=== PATIENT | female | born 1985 | race Caucasian/White ===

== ENCOUNTER → 2024-06-01 08:42 | Outpatient (REF) | payer OTHER, SELFPAY | LOC: RAD 08:42 | PROVIDERS: ATTENDING PHYSICIAN Physician Assistant Medical | DX: F90.9 Attention-deficit hyperactivity disorder, unspecified type (principal) | CPT/HCPCS: 73030 ==

== ENCOUNTER → 2024-07-02 07:53 | Outpatient (REF) | payer OTHER, SELFPAY | LOC: RAD 07:53 | PROVIDERS: ATTENDING PHYSICIAN Physician Assistant Medical | DX: M25.562 Pain in left knee (principal) | CPT/HCPCS: 73564 ==

== ENCOUNTER 2024-11-20 23:35 | Emergency (ER) | payer OTHER, SELFPAY ==
[2024-11-20 23:40] VITALS: BP 118/80
--- NOTE | 2024-11-21 00:54 | ED.GENMED ---
History of Present Illness
General
Chief Complaint: Abdominal Symptoms
Source: patient
Exam Limitations: none
Time Seen by Provider: 11/21/24 00:45
Nursing documentation reviewed up to this point in time: agreed with
History of Present Illness
History of Present Illness:
pt is a 39 y/o F with no isg pmh
here with nausea/vmoiting/diarrhea
started with symptoms 4 days ago with vomiting primarily;had a fever for that day, vomited about 10 times
then she felt ok and was tolerating po after 24 hurs
went back to work 2 days ago and then symptoms started with diarrhea that evening
has mostly had watery stools since, many a day
trying to stay hydrated but now feeling very nauseated with liquids adn dry heaving
she is having abd cramps, startted on R then moved to L
no bloody stool, recent travel, recent abx
nothing taken for symptoms
dec urination
no previous abd surgeries
Past History
Past History
ED Past Medical History: Psychiatric
ED Past Surgical History: None
Social History
Tobacco: Non-smoker
Personal:
Living: with family
Family History
Family History: Other (Kidney stones)
Review of Systems
Review of Systems
Allergies reviewed?: Yes
All Other Systems: Not applicable
Phy Exam
Physical Exam
Physical Exam:
GENERAL: Alert , in no apparent distress
EYE: pupils equal and reactive
NECK: Supple
ENT: o/p clr, mild dry mouth
CARDIAC: Regular rate and rhythm .no edema
LUNGS: Clear breath sounds bilaterally, no acute respiratory distress, no wheezes/rales/rhonchi
ABDOMEN: Soft, without focal tenderness, no r/g, no cvat, normal bowel sounds
no distension
NEUROLOGICAL: Alert and oriented, no focal neuro deficits
SKIN: Warm and dry, skin intact.
MUSCULOSKELETAL: No edema, well perfused. neg jeanette's sign
PSYCH: Normal and appropriate interaction.
Course
Orders/Labs/Results
Orders:
Orders
11/21/24 00:47
CBC/With Diff [Complete Blood Count/With Diff] Urgent
CMP [Comprehensive Metabolic Panel] Urgent
HCG, Serum Qualitative Screen Urgent
Comment: ADD ON
Lipase Urgent
11/21/24 01:04
0.9% Sodium Chloride 1000 ml [Nss] 1,000 ml IV BOLUS
Famotidine [Pepcid] 20 mg IV NOW STA
Ketorolac [Toradol] 15 mg IV NOW STA
Ondansetron Injectable [Zofran] 4 mg IV NOW STA
11/21/24 01:05
Add On- LAB Urgent
Tests Added?: hcg qual serum
11/21/24 02:33
Dicyclomine [Bentyl] 20 mg PO NOW STA
11/21/24 02:52
Urinalysis Reflex To Culture Urgent
Date Specimen was Collected: 11/21/24
Time Specimen was Collected: 02:51
Urine Microscopic Reflex Cult Urgent
Norovirus by PCR Urgent
MICHELLE Source: Feces/Stool
Specimen Description:
Date Specimen was Collected: 11/21/24
Time Specimen was Collected: 02:51
STOOL [C difficile Antigen & Toxins] Urgent
MICHELLE Source: Feces/Stool
Specimen Description:
Date Specimen was Collected: 11/21/24
Time Specimen was Collected: 02:51
Stool Culture Urgent
MICHELLE Source: Feces/Stool
Specimen Description:
Date Specimen was Collected: 11/21/24
Time Specimen was Collected: 02:51
Urine Culture Urgent
MICHELLE Source: U
Specimen Description:
Date Specimen was Collected: 11/21/24
Time Specimen was Collected: 02:51
Abnormal Lab Results
11/21/24 11/21/24
00:47 02:52
MPV 10.6 H fL
(7.4-10.4)
BUN 19 H mg/dl
(7-17)
Glucose 101 H mg/dl
(70-99)
AST 41 H U/L
(14-36)
ALT 57 H U/L
(0-35)
Urine Ketones 1+ A
(Negative)
Ur Occult Blood Reflex 3+ A
(Negative)
Urine Bilirubin 1+ A
(Negative)
Leukocyte Esterase Rfl 3+ A
(Negative)
Urine RBC 11-15 A /HPF
(0-2)
Urine WBC (Reflex) 26-30 A /HPF
(0-5)
Urine Bacteria (Reflex) Few A
(Negative)
Urine Albumin (Reflex) 2+ A
(Neg - Trace)
11/21/24 00:47
11/21/24 00:47
Vital Signs
Initial and Last Documented VS:
Initial Vital Signs
Temp Pulse Resp BP Pulse Ox
37.0 C 82 22 118/80 100
11/20/24 23:40 11/20/24 23:40 11/20/24 23:40 11/20/24 23:40 11/20/24 23:40
Last Documented Vital Signs
Temp Pulse Resp BP Pulse Ox
36.4 C 67 18 108/59 100
11/21/24 02:43 11/21/24 02:43 11/21/24 02:43 11/21/24 02:43 11/21/24 02:43
MDM/Problems Addressed
Differential Diagnosis Includes:
gastroenteritis, norovirus
MDM/Problems Addressed:
39 y/o F with no sig pmh
here with n/v/d
mostly vmoiting intiially and then switched to mostly diarrhea
feels dehydrated
having crampy pain in her abdomen more on the L side
no distension, fever urinary symptoms
no previous abd surgery
no c diff rf
no known exposures
onexam nontoxic
not tachy
afebrile
mild dry
nontender abdomen
no back tendneress
wbc normal
mild lft elevation
suspect viral gastroenteritis
aware of pt's urine which is contaminated
she has zero uti sxs and no h/o kidney stone
do not suspect pain is related to kindye stone or infectionconsidered imaging but will hold off
dacia hold abx
norovirus and stool studies are pending
pt is feelingwell enoguht to go home
trial po fluids well
return precuations
*Critical Care Note
Total Time (30-74mins, 75-104mins- exclusive of procedures): Not Applicable
ED Attending Note
-
Portions of this chart may have been created with voice recognition software.� Occasional wrong word or��sound alike� substitutions may have occurred due to the inherent limitations of voice recognition software.
Discharge Plan
Departure
Patient Disposition: Home (Routine Discharge)
Date of Disposition: 11/21/24
Time of Disposition: 03:55
Patient with high blood pressure during this ER visit?: No
Condition: Fair
Covid-19: Not Applicable
Discharge Problem:
Gastroenteritis
Instructions: Viral gastroenteritis in adults
Prescriptions:
New
ondansetron 4 mg tablet,disintegrating
4 mg PO Q8H PRN (Reason: nausea and vomiting) 2 Days Qty: 5 0RF
dicyclomine 20 mg tablet
20 mg PO QID PRN (Reason: abdominal pain) Qty: 15 0RF
No Action
Vitamins
1 tab PO DAILY
Zantac
ibuprofen 600 MG tablet
600 mg PO Q4HPRN PRN (Reason: moderate pain/cramps) 0RF
Referrals:
UNKNOWN - PT DOES,NOT KNOW [Family Provider] -
Activity Restrictions/Additional Instructions:
YOU PROBABLY HAVE A VIRAL INFECTION CAUSING YOUR SYMPTOMS
YOU DID HAVE A URINE THAT LOOKED INFECTED BUT IT APPEARS TO BE CONTAMINATED SO WE ARE NOT STARTING ANTIBIOTICS AT THIS TIME
TRY ZOFRAN EVERY 8 HOURS NEEDED FOR NAUSEA/VOMITING
BLAND DIET
BRAT DIET FOR DIARRHEA (BANANAS , RCIE, APPLESAUCE, TOAST)
WE TESTED YOUR STOOL FOR BACTERIA AND VIRUS- YOU CAN FOLLOW UP TOMORROW OR FRIDAY FOR RESULTS
STAY HOME AND BLEACH THE TOILET AFTER USE, OR TRY NOT TO SHARE BATHROOM
RETURN FOR WORSENING SYMPTOMS, SEVERE DIARRHEA, DEHYRDATION, FEVER
Interventions
Interventions:
*Risk Screen - Suicide Last Done: 11/20/24 23:40
*General Assessment Last Done: 11/21/24 00:53
*Neglect/Abuse Screening Last Done: 11/20/24 23:40
*ED- Fall Risk Assessment Last Done: 11/21/24 00:53
*ED COVID-19 Vaccine History Last Done: 11/21/24 00:53
*Nursing Disposition Last Done: 11/21/24 04:14
NI-Ipgsob-Hatagjiqpe Assessment Last Done: 11/21/24 00:53
Discharge Date and Time
Discharge Date/Time: 11/21/24 04:14
Print Language: ALBANIAN
[2024-11-21 01:02] LABS: % Basophils 0.4 % (0-2); % Eosinophils 1.1 % (0-6); % Immature Granulocytes 0.4 % (0-0.5); % Lymphocytes 27.9 % (20.5-51.1); % Monocytes 7.4 % (1.7-9.3); % Neutrophils 62.8 % (42.2-75.2); Absolute Eosinophils 0.1 10^3/uL (0-0.7); Absolute Lymphocytes 1.5 10^3/uL (1.2-3.4); Absolute Monocytes 0.4 10^3/uL (0.1-0.6); Absolute Neutrophils 3.4 10^3/uL (1.4-6.5); Hematocrit 42.6 % (37.0-47.0); Hemoglobin 14.5 g/dL (12.0-16.0); Mean Corpuscular Hgb 30.9 pg (27.0-31.0); Mean Corpuscular Volume 90.6 fL (81.0-99.0); Mean Platelet Volume 10.6 fL (7.4-10.4); Nucleated Red Blood Cells % 0 %; Platelet Count 208 10^3/uL (130-400); Red Cell Dist. Width 12.7 % (11.5-14.5); White Blood Cell Count 5.4 10^3/uL (4.8-10.8)
[2024-11-21 01:09] LABS: ALT (SGPT) 57 U/L (0-35); AST (SGOT) 41 U/L (14-36); Albumin 4.4 g/dl (3.5-5.0); Alkaline Phosphatase 74 U/L (38-126); Blood Urea Nitrogen 19 mg/dl (7-17); Calcium 9.4 mg/dl (8.4-10.2); Carbon Dioxide 23 mmol/L (22-30); Chloride 107 mmol/L (98-107); Glucose 101 mg/dl (70-99); Lipase 134 U/L (23-300); Potassium 3.8 mmol/L (3.5-5.1); Sodium 137 mmol/L (135-145); Total Bilirubin 0.8 mg/dl (0.2-1.3); Total Protein 7.6 g/dl (6.3-8.2); eGFR > 60.00
[2024-11-21] MEDS: PEPCID 20 MG IV (01:18)
[2024-11-21] MEDS: ZOFRAN 4 MG IV (01:18)
[2024-11-21] MEDS: TORADOL 15 MG IV (01:18)
[2024-11-21] MEDS: NSS 1000 IV (01:19)
[2024-11-21 01:37] LABS: HCG, Serum Qualitative Screen Negative
[2024-11-21] MEDS: BENTYL 20 MG PO (02:41)
[2024-11-21 02:43] VITALS: BP 108/59
[2024-11-21 03:02] LABS: Urine Albumin 2+ (Neg - Trace); Urine Bilirubin 1+ (Negative); Urine Character Clear (Clear); Urine Color Yellow; Urine Glucose Negative (Negative); Urine Ketone 1+ (Negative); Urine Leukocyte 3+ (Negative); Urine Nitrite Negative (Negative); Urine Occult Blood 3+ (Negative); Urine Specific Gravity 1.025 (<1.030); Urine Urobilinogen Negative (Neg - 1+)
[2024-11-21 03:43] LABS: Urine Squamous Cell >30 /LPF (Few)
[2024-11-21 03:44] LABS: Urine Calcium Oxalate Crystals Present
[2024-11-21 03:45] LABS: Urine White Cell 26-30 /HPF (0-5)
[2024-11-21 03:46] LABS: Urine Bacteria Few (Negative)
== END 2024-11-21 04:14 | disposition home or self-care (01) ==
LOC: EMR 23:35
PROVIDERS: Physician Assistant; EMERGENCY PHYSICIAN Emergency Medicine
DX: K52.9 Noninfective gastroenteritis and colitis, unspecified (principal)
CPT/HCPCS: 99283; 80053; 81003; 81015; 83690; 84703; 85025; 87045; 87046; 87086; 87324; 87427; 87449; 87798